=== PATIENT | female | born 1995 | race Caucasian/White ===

== ENCOUNTER 2024-01-19 12:39 | Outpatient (CLI) | payer MEDICAID, SELFPAY | END 2024-01-19 12:40 | disposition home or self-care (01) | LOC: US 12:40 | PROVIDERS: Visit Provider Student in an Organized Health Care Education/Training Program | DX: O99.212 Obesity complicating pregnancy, second trimester (principal); Z3A.19 19 weeks gestation of pregnancy | CPT/HCPCS: 76811 ==

== ENCOUNTER 2024-02-16 09:37 | Outpatient (CLI) | payer MEDICAID, SELFPAY | END 2024-02-16 09:38 | disposition home or self-care (01) | LOC: US 09:38 | PROVIDERS: Visit Provider Obstetrics & Gynecology | DX: O26.892 Other specified pregnancy related conditions, second trimester (principal); Q64.9 Congenital malformation of urinary system, unspecified; Z3A.23 23 weeks gestation of pregnancy | CPT/HCPCS: 76816 ==

== ENCOUNTER 2024-03-11 18:14 | Emergency (ER) | payer MEDICAID, SELFPAY ==
[2024-03-11 18:22] VITALS: BP 122/85; PULSE 119; RESP 18; TEMP 36.4; O2SAT 97; BMI 46.1
--- NOTE | 2024-03-11 18:43 | ED.GENADULT ---
HPI - General Adult General Chief complaint: Nausea/Vomiting Stated complaint: 26 weeks , elevated heartrate, weakness Time Seen by Provider: 03/11/24 18:24 Source: patient Mode of arrival: ambulatory Limitations: no limitations History of Present Illness HPI narrative: 28-year-old female, a 26 weeks gestation presents today with nausea, vomiting, diarrhea and racing heartbeat. Patient states that she began to get sick yesterday and has been vomiting or having diarrhea every hour since. She denies fevers or chills. No blood in her vomit or stool. She feels achy. No headache. No chest pain or abdominal pain. Patient is not short of breath. No vaginal discharge. has been uncomplicated. Baby was kicking as recently as an hour ago. Denies any sick contacts. This afternoon patient noticed that her heart was racing. Related Data Home Medications ?Medication ?Instructions ?Recorded ?Confirmed PNV 153-FA 400 mcg-om3 35 mg-dha tab PO 12/08/23 12/20/23 25 mg-epa 5 mg-fish oil chew tablet ( Gummies) Allergies Allergy/AdvReac Type Severity Reaction Status Date / Time No Known Drug Allergies Allergy Verified 12/20/23 08:42 Review of Systems Status of ROS: Reports: 10 or more systems reviewed and unremarkable except as noted in History and below [facility] Medical History History of vaginal delivery Hx of abnormal cervical Pap smear ?Z87.42 - Personal history of other diseases of the female genital tract (ICD-10) Surgical History History of cholecystectomy ?Z90.49 - Acquired absence of other specified parts of digestive tract (ICD-10) Social History Narrative: Education: Some college? ? Work: current student in college? ? Partner: Efrian? ? Lives with: Inez and 3 other children, age 14, 3 and 14 months.? ? Pets: one cat, she does not change the litter box? ? Abuse: Denies past Safe at home with current partner ? ? ? Special Diet: Denies? ? Ok with a blood transfusion: yes? ? Culture or protestant beliefs: denies? RISK FACTORS? ? Exercise Times/wk: daily walking most of the time, and house chores? ? Depression/Anxiety: denies? ? Previous Treatments NA ? Therapy NA JASWANT: 0 PHQ 9: 0? ? Seat Belt Use: Routinely ? Smoking: Denies past/present? ? Alcohol/day: Denies while ? ?Has 1-2 drinks a week when not Caffeine: rarely when ? ? Drug Use: Denies past/present? What is your current living situation?: I presently have a place to live Problems where you live: no known problems In the past 12 months, utilities in danger of being shut off: no In past 12 months, lack of transportation kept you from medical appts, meetings, work, or getting things needed for daily living: no In the past 12 mos, have been you worried that your food would run out before you had money to buy more?: never true In the past 12 mos, the food you bought just didn't last and you didn't have money to buy more?: never true Smoking Status: Never smoker Do you use any of these nicotine containing products: Vaping Products Second hand tobacco smoke exposure: No How often do you have a drink containing alcohol: never AUDIT-C Alcohol total score: 0 Non-prescribed substance use: denies use How often does anyone, including family, friends and others, physically hurt you: never How often does anyone, including family, friends and others, insult or talk down to you: never How often does anyone, including family, friends and others, threaten you with harm: never How often does anyone, including family, friends and others, scream or curse at you: never service: No Exam Narrative: Exam Narrative: Obese, well-developed patient in no acute distress. Alert and oriented. Answers questions appropriately. Mood and affect are appropriate. Thoughts are goal oriented and rational. No tangential or magical thinking noted. Patient speaks in full sentences without needing to catch her breath. HEENT: Normocephalic atraumatic. Pupils are equally round reactive to light. Extraocular muscles are intact. Conjunctivae are moist without any icterus noted. Moist mucous membranes. Posterior pharynx is normal. Neck is soft without any lymphadenopathy or thyromegaly. No masses are appreciated. Cardiovascular: Tachycardic, regular rhythm. Lungs: Clear to auscultation bilaterally no wheezes rhonchi or rales are appreciated. Patient takes deep breaths without any discomfort. Abdomen: Soft and nontender nondistended with normal bowel sounds. Gravid. Extremities: Bilateral lower extremities are without edema. Skin: Well perfused without any obvious rashes. Const: Vital Signs, click to edit/add: Vital Signs - 24 hr 03/11/24 18:22 Temperature 97.5 F L Pulse Rate [Pulse Oximeter] 119 H Respiratory Rate 18 Blood Pressure [Ri ght Upper Arm] 122/85 Pulse Oximetry 97 Oxygen Delivery Me thod Room Air Course Course ED Course: Bedside Doppler revealed heart tones with a rate of 165. We did go ahead and start an IV, L of normal saline IV Zofran was ordered. EKG, read by me, shows normal sinus rhythm with a pulse of 95. CBC unremarkable. Mild anemia expected at this stage . Electrolytes show mild hyponatremia and mild hypokalemia. UA with 4+ ketones. Triple swab is negative. Vital Signs Vital signs: Initial Vital Signs Temperature 97.5 F L 03/11/24 18:22 Temperature Source Temporal Artery Scan 03/11/24 18:22 Pulse Rate 119 H 03/11/24 18:22 Respiratory Rate 18 03/11/24 18:22 Blood Pressure 122/85 03/11/24 18:22 Blood Pressure Mean 97 03/11/24 18:22 Pulse Oximetry 97 03/11/24 18:22 Oxygen Delivery Method Room Air 03/11/24 18:22 Vital Signs Temperature 97.5 F L 03/11/24 18:22 Pulse Rate 119 H 03/11/24 18:22 Respiratory Rate 18 03/11/24 18:22 Blood Pressure 122/85 03/11/24 18:22 Pulse Oximetry 97 03/11/24 18:22 Oxygen Delivery Method Room Air 03/11/24 18:22 Temperature 97.5 F L 03/11/24 18:22 Pulse Rate 119 H 03/11/24 18:22 Respiratory Rate 18 03/11/24 18:22 Blood Pressure 122/85 03/11/24 18:22 Pulse Oximetry 97 03/11/24 18:22 Oxygen Delivery Method Room Air 03/11/24 18:22 Medications Administered Medications: Discontinued Medications Generic Name Dose Route Start Last Admin Trade Name Freq PRN Reason Stop Dose Admin Sodium Chloride 1,000 mls @ 1,000 mls/hr 03/11/24 18:45 03/11/24 18:55 0.9 % Sodium Chloride 1000 Ml IV 03/11/24 19:44 1,000 mls/hr .Q1H BINU Administration Ondansetron HCl 4 mg 03/11/24 18:36 03/11/24 18:55 Ondansetron 2 Mg/Ml Inj IVP 03/11/24 18:37 4 mg ONCE ONE Administration Medical Decision Making MDM Narrative Medical decision making narrative: 28-year-old female gastroenteritis. Discussed fluid intake, rest. Will send the patient home with some tablets of Zofran to take as needed. If she is feeling better over the next 24 hours she has a follow-up appointment March 22 that she can keep. Otherwise recommend she follow-up this week if she is not feeling that she is improving. Lab Data Lab results reviewed: Yes I reviewed the patient's lab results Labs: Lab Results 03/11/24 03/11/24 03/11/24 Range/Units 18:31 18:51 19:35 WBC 10.05 (4.50-11.00) K/uL RBC 3.90 L (4.00-5.20) m/uL Hgb 11.3 L (12.0-16.0) gm/dL Hct 34.9 (33.0-51.0) % MCV 90 (80-100) fL MCH 29 (26-34) pg MCHC 32 (32-36) gm/dL RDW Coeff of Laquita 15.9 H (11.5-15.5) % Plt Count 208 (140-440) K/uL Neut % (Auto) 92.0 H (42.0-72.0) % Lymph % (Auto) 5.4 L (20-44) % [place] % (Auto) 2.0 (0.0-11.0) % Eos % (Auto) 0.1 (0.0-7.0) % Baso % (Auto) 0.1 (0.0-3.0) % Neut # (Auto) 9.20 H (1.7-7.0) K/uL Lymph # (Auto) 0.50 L (0.90-2.90) K/uL [place] # (Auto) 0.20 (0.00-0.90) K/UL Eos # (Auto) 0.01 (0.00-0.50) K/uL Baso # (Auto) 0.01 (0.00-0.30) K/uL Abs Immat Gran (auto) 0.04 (0.00-0.30) K/uL Imm/Tot Granulo (auto) 0.4 % Sodium 134 L (135-149) mmol/L Potassium 3.3 L (3.6-5.1) mmol/L Chloride 107 (96-114) mmol/L Carbon Dioxide 19 L (20-32) mmol/L Anion Gap 8 (7-15) mEq/L BUN 5 (5-24) mg/dL Creatinine 0.3 L (0.5-1.5) mg/dL Estimated Creat Clear 246.74 Estimated GFR 146 ml/min Glucose 116 H (60-115) mg/dL Calcium 8.4 (8.4-10.6) mg/dL Total Bilirubin 0.7 (0.1-1.5) mg/dL Direct Bilirubin 0.3 (0.0-0.5) mg/dL AST 16 (12-35) U/L ALT 14 (4-35) U/L Alkaline Phosphatase 115 (40-150) U/L Total Protein 7.0 (6.0-8.3) g/dL Albumin 3.4 (3.3-5.0) g/dL Urine Color Yellow (Yellow) Urine Appearance Slightly Cloudy A (Clear) Urine pH 6.5 (5.0-8.5) Ur Specific [place] 1.015 (1.000-1.030) Urine Protein Negative (Negative) Urine Glucose (UA) Negative (Negative) Urine Ketones 4+ A (Negative) Urine Blood Negative (Negative) Urine Nitrite Negative (Negative) Urine Bilirubin Negative (Negative) Urine Urobilinogen 0.2 (0.2-1.0) Ur Leukocyte Esterase Negative (Negative) Urine RBC 0-2 (0-2) Urine WBC 0-2 (0-5) Ur Squamous Epith Cells Moderate A (None-Few) Urine Bacteria Moderate A (None) SARS-CoV-2 (PCR) Negative SARS-CoV-2 (Negative) Influenza Type A (PCR) Negative PCR FLU A (Negative) Influenza Type B (PCR) Negative PCR FLU B (Negative) RSV (PCR) Negative PCR RSV (Negative) Discharge Plan Discharge Clinical Impression: Gastroenteritis Patient Disposition: Home, Self-Care Condition: Stable Additional Instructions: Okay to take Zofran as needed for nausea and vomiting. If you are feeling better you can keep you March 22 appointment. If you are not feeling improved by the end tomorrow, recommend you follow-up with your OBGYN or primary care provider early next week. Your sodium and potassium was slightly low today. If you are not feeling better by the end of tomorrow it would be a good idea to have those rechecked this coming week. Zofran #10 tabs sent to [facility]. Prescriptions: No Action Gummies 400 mcg-35 mg- 25 mg-5 mg tablet,chewable PO Follow Up/Referrals: Provider,Not a Local [Primary Care Provider] - Stand Alone Forms: [employer] Info Instructions
[2024-03-11] MEDS: 0.9 % SODIUM CHLORIDE 1000 ml 1,000 ML IV (18:55)
[2024-03-11] MEDS: ONDANSETRON 2 MG/ML inj 4 MG IVP (18:55)
[2024-03-11 19:09] LABS: Basophils Absolute Auto 0.01 K/uL (0.00-0.30); Basophils Percent Auto 0.1 % (0.0-3.0); Eosinophils Absolute Auto 0.01 K/uL (0.00-0.50); Eosinophils Percent Auto 0.1 % (0.0-7.0); Hematocrit 34.9 % (33.0-51.0); Hemoglobin* 11.3 gm/dL (12.0-16.0); Immature Granulocytes Abs Auto 0.04 K/uL (0.00-0.30); Immature Granulocytes Pct Auto 0.4 %; Lymphocytes Percent Auto 5.4 % (20-44); Mean Corpuscular HGB Conc 32 gm/dL (32-36); Mean Corpuscular Hemoglobin 29 pg (26-34); Mean Corpuscular Volume 90 fL (80-100); Platelet Count* 208 K/uL (140-440); RDW Coefficient of Variation % 15.9 % (11.5-15.5); White Blood Count* 10.05 K/uL (4.50-11.00)
--- NOTE | 2024-03-11 19:18 | PC.NURSE ---
pt in rade
[2024-03-11 19:27] LABS: PCR FLU A Negative PCR FLU A (Negative); PCR FLU B Negative PCR FLU B (Negative); PCR RSV Negative PCR RSV (Negative); SARS PCR* Negative SARS-CoV-2 (Negative)
[2024-03-11 19:33] LABS: Slide Review Reflex No
[2024-03-11 19:39] LABS: Albumin* 3.4 g/dL (3.3-5.0); Chloride* 107 mmol/L (96-114); Potassium* 3.3 mmol/L (3.6-5.1); Sodium* 134 mmol/L (135-149)
[2024-03-11 19:41] LABS: Creatinine* 0.3 mg/dL (0.5-1.5); Est. Creatinine Clearance* 246.74; Estimated Glomerular Filt Rate 146 ml/min
[2024-03-11 19:41] LABS: Appearance Urine Slightly Cloudy (Clear); Bilirubin Urine Negative (Negative); Blood Urine Negative (Negative); Color Urine Yellow (Yellow); Glucose Urine Negative (Negative); Ketones Urine 4+ (Negative); Leukocyte Esterase Urine Negative (Negative); Nitrite Urine Negative (Negative); Protein Urine Negative (Negative); Specific Gravity Urine 1.015 (1.000-1.030); Urobilinogen Urine 0.2 (0.2-1.0); pH Urine 6.5 (5.0-8.5)
[2024-03-11 19:42] LABS: Alanine Aminotransferase* 14 U/L (4-35); Alkaline Phosphatase* 115 U/L (40-150); Anion Gap 8 mEq/L (7-15); Aspartate Amino Transferase* 16 U/L (12-35); Bilirubin Direct* 0.3 mg/dL (0.0-0.5); Bilirubin Total* 0.7 mg/dL (0.1-1.5); Blood Urea Nitrogen* 5 mg/dL (5-24); Carbon Dioxide* 19 mmol/L (20-32); Glucose* 116 mg/dL (60-115)
[2024-03-11 19:43] LABS: Calcium* 8.4 mg/dL (8.4-10.6)
[2024-03-11 19:49] LABS: Bacteria Urine Moderate; RBC Urine 0-2 (0-2); Squamous Epithelial Cell Urine Moderate (None-Few); WBC Urine 0-2 (0-5)
[2024-03-11 20:06] VITALS: BP 126/78; PULSE 114; RESP 20
== END 2024-03-11 20:07 | disposition home or self-care (01) ==
PROVIDERS: Emergency Provider Family Medicine
DX: K52.9 Noninfective gastroenteritis and colitis, unspecified (principal); Z33.1 Pregnant state, incidental
CPT/HCPCS: 36415; 80048; 80076; 81001; 85025; 87086; 87631; 93005; 96374; 99284; J2405; J7030

== ENCOUNTER 2024-03-22 08:03 | Outpatient (CLI) | payer MEDICAID, SELFPAY | END 2024-03-22 08:04 | disposition home or self-care (01) | LOC: US 08:04 | PROVIDERS: Visit Provider Obstetrics & Gynecology | DX: O99.213 Obesity complicating pregnancy, third trimester (principal); E66.01 Morbid (severe) obesity due to excess calories; Z3A.28 28 weeks gestation of pregnancy | CPT/HCPCS: 76816; 86592 ==

== ENCOUNTER 2024-03-24 07:58 | Outpatient (CLI) | payer MEDICAID, SELFPAY | END 2024-03-24 07:59 | disposition home or self-care (01) | LOC: NFLDREF 03-28 11:37 | PROVIDERS: PCP Obstetrics & Gynecology; Visit Provider Obstetrics & Gynecology | DX: O99.810 Abnormal glucose complicating pregnancy (principal) | CPT/HCPCS: 82951; 82952 ==

== ENCOUNTER 2024-04-21 09:03 | Outpatient (CLI) | payer MEDICAID, SELFPAY ==
--- NOTE | 2024-04-21 09:08 | CRLHL7_ITS ---
For Patients: As a result of the Century Cures Act, medical imaging exams and procedure reports are released immediately into your electronic medical record. You may view this report before your referring provider. If you have questions, please contact your health care provider. OB ULTRASOUND FOLLOWUP LIMITED, 04/21/2024 CLINICAL HISTORY: GDMA2 and obesity. TECHNIQUE: Transabdominal OB ultrasound. Real time rodriguez scale imaging of the fetus was performed. COMPARISON: 03/22/2024, 02/16/2024, 01/19/2024. FINDINGS: Gestation: Single. ASHLEY by US: 06/14/2024. GA: 32 weeks 2 days. Cervix: Not visualized. Positioning: Vertex. Amniotic Fluid: 6.0 cm. Placenta: Technique: Transabdominal. Placenta Position: Posterior. Dopplers: Heart Rate: 141 bpm. Biophysical Profile: Total Score: 8 Gross Body Movements: 2 Tone: 2 Respiratory Activity: 2 Amniotic Fluid: 2 Biometry: BPD: 8.1 cm, 32 weeks 4 days. 50.8% HC: 29.7 cm, 32 weeks 6 days. 27.7% AC: 29.9 cm, 33 weeks 6 days. 89.3% FL: 6.0 cm, 31 weeks 2 days. 15.2% EFW: 2087 grams, 4 lb 10 oz. Age by this US: 32 weeks 5 days. ASHLEY by this US: 06/11/2024. Percentile by ASHLEY: 61.5% IMPRESSION: 1. Sonographic gestational age 32 weeks 5 days and sonographic due date 06/11/2024. Good correlation with dates. Normal interval growth. 2. Estimated weight 62nd percentile. Abdominal circumference 89th percentile. 3. Normal biophysical profile score of 8/8. Nino Klein M.D. Diagnostic Radiologist [email or web address] Transcribed: 1:52 pm DW/Dictated by: Nino Klein MD @ 04/21/2024 1:18:00 PM DW/Dictated by: Nino Klein MD @ 04/21/2024 1:18:00 PM (Electronically Signed)
== END 2024-04-21 09:04 | disposition home or self-care (01) ==
LOC: US 09:04
PROVIDERS: Visit Provider Obstetrics & Gynecology
DX: O24.419 Gestational diabetes mellitus in pregnancy, unspecified control (principal); O99.213 Obesity complicating pregnancy, third trimester; Z3A.32 32 weeks gestation of pregnancy
CPT/HCPCS: 76816; 76819

== ENCOUNTER 2024-04-25 14:20 | Outpatient (CLI) | payer MEDICAID, SELFPAY | END 2024-04-25 14:21 | disposition home or self-care (01) | PROVIDERS: Visit Provider Obstetrics & Gynecology | DX: O24.414 Gestational diabetes mellitus in pregnancy, insulin controlled (principal); Z3A.32 32 weeks gestation of pregnancy | CPT/HCPCS: 82565; 82570; 84156; 84450; 84460; 84520 ==

== ENCOUNTER 2024-04-28 09:08 | Outpatient (CLI) | payer MEDICAID, SELFPAY | END 2024-04-28 09:09 | disposition home or self-care (01) | LOC: US 09:08 | PROVIDERS: Visit Provider Obstetrics & Gynecology | DX: O24.419 Gestational diabetes mellitus in pregnancy, unspecified control (principal); O99.210 Obesity complicating pregnancy, unspecified trimester; Z3A.00 Weeks of gestation of pregnancy not specified; E66.01 Morbid (severe) obesity due to excess calories | CPT/HCPCS: 76819 ==

== ENCOUNTER 2024-05-05 09:13 | Outpatient (CLI) | payer MEDICAID, SELFPAY | END 2024-05-05 09:14 | disposition home or self-care (01) | LOC: US 09:14 | PROVIDERS: Visit Provider Obstetrics & Gynecology | DX: O24.419 Gestational diabetes mellitus in pregnancy, unspecified control (principal); O99.210 Obesity complicating pregnancy, unspecified trimester; E66.01 Morbid (severe) obesity due to excess calories | CPT/HCPCS: 76819 ==

== ENCOUNTER 2024-05-10 11:29 | Outpatient (CLI) | payer MEDICAID, SELFPAY | END 2024-05-10 11:30 | disposition home or self-care (01) | LOC: US 11:29 | PROVIDERS: Visit Provider Obstetrics & Gynecology | DX: O99.210 Obesity complicating pregnancy, unspecified trimester (principal); O24.419 Gestational diabetes mellitus in pregnancy, unspecified control | CPT/HCPCS: 76819 ==

== ENCOUNTER 2024-05-10 12:29 | Outpatient (CLI) | payer MEDICAID, SELFPAY ==
[2024-05-10] VITALS (14 sets, daily range): BP systolic 102–125; BP diastolic 56–72; PULSE 82–109; O2SAT 98–100
[2024-05-10 13:03] LABS: Hematocrit 34.4 % (33.0-51.0); Mean Corpuscular HGB Conc 32 gm/dL (32-36); Mean Corpuscular Hemoglobin 30 pg (26-34); Mean Corpuscular Volume 93 fL (80-100); Platelet Count* 183 K/uL (140-440); Red Blood Count 3.71 m/uL (4.00-5.20); White Blood Count* 7.45 K/uL (4.50-11.00)
[2024-05-10 13:08] LABS: Slide Review Reflex No
[2024-05-10 13:18] LABS: Alanine Aminotransferase* 19 U/L (4-35); Aspartate Amino Transferase* 15 U/L (12-35); Blood Urea Nitrogen* 4 mg/dL (5-24); Creatinine* 0.4 mg/dL (0.5-1.5); Estimated Glomerular Filt Rate 136 ml/min
[2024-05-10 14:59] LABS: Total Protein Urine 14 mg/dL
[2024-05-10 15:14] LABS: Creatinine Urine 31.8 mg/dL; Protein Creatinine Ratio Urine 0.44 (0-0.19)
--- NOTE | 2024-05-10 15:15 | PC.OBNST ---
NST Note NST Note Start: 05/10/24 12:35 Freq: ONCE Status: Active Protocol: Document 05/10/24 14:32 ARSEN (Rec: 05/10/24 14:32 ARSEN Desktop) NST Note 4 Para (# of births) 3 EDC 06/14/24 Gestational Age In Weeks & Days 35 Weeks & 0 Days High Risk Factors High Blood Pressure - Gestational,Diabetes - Gestational Insulin Patient Presented with Complaint(s) of Other Other Complaints Elevated BPs Reactive Yes Appropriate for Gestational Age Yes RN Theresa Krueger RN Date 05/10/24 Reactive Yes Appropriate for Gestational Age Yes KAILEY Connell RN Date 05/10/24 OB NST charge Yes Complete NST Note via Write Note Yes The provider's electronic signature indicates the NST is reactive/appropriate for gestational age. *Note to provider: If an addendum is required, open the patient's chart and click on the note under the Nurse/Allied Health tab.
[2024-05-11 12:21] LABS: Strep B DNA Probe Negative (Negative)
[2024-05-11 14:07] LABS: Strep B Susceptibility Needed? No
== END 2024-05-10 14:30 | disposition home or self-care (01) ==
LOC: OB OUT 12:30 → OB 12:31
PROVIDERS: Visit Provider Obstetrics & Gynecology
DX: O24.419 Gestational diabetes mellitus in pregnancy, unspecified control (principal); Z3A.35 35 weeks gestation of pregnancy
CPT/HCPCS: 36415; 59025; 82565; 82570; 84156; 84450; 84460; 84520; 85027; 87081; 87653; G0463

== ENCOUNTER 2024-05-15 09:16 | Outpatient (CLI) | payer MEDICAID, SELFPAY | END 2024-05-15 09:17 | disposition home or self-care (01) | LOC: NFLDREF 05-16 01:00 | PROVIDERS: Visit Provider Obstetrics & Gynecology | DX: Z34.83 Encounter for supervision of other normal pregnancy, third trimester (principal) | CPT/HCPCS: 82565; 84450; 84460 ==

== ENCOUNTER 2024-05-19 09:12 | Outpatient (CLI) | payer MEDICAID, SELFPAY | END 2024-05-19 09:13 | disposition home or self-care (01) | LOC: US 09:12 | PROVIDERS: Visit Provider Obstetrics & Gynecology | DX: O99.213 Obesity complicating pregnancy, third trimester (principal); E66.01 Morbid (severe) obesity due to excess calories; Z3A.36 36 weeks gestation of pregnancy | CPT/HCPCS: 76816; 76819 ==

== ENCOUNTER 2024-05-22 09:16 | Outpatient (CLI) | payer MEDICAID, SELFPAY | END 2024-05-22 09:17 | disposition home or self-care (01) | LOC: NFLDREF 05-23 15:22 | PROVIDERS: Visit Provider Obstetrics & Gynecology | DX: O14.93 Unspecified pre-eclampsia, third trimester (principal); Z3A.36 36 weeks gestation of pregnancy | CPT/HCPCS: 82565; 82570; 84156; 84450; 84460; 84520 ==

== ENCOUNTER 2024-05-23 18:08 | Inpatient (IN) | payer MEDICAID, SELFPAY ==
[2024-05-23 18:21] VITALS: PULSE 112; O2SAT 97
[2024-05-23 18:23] VITALS: BMI 47.5
[2024-05-23 18:35] VITALS: BP 147/81; PULSE 89
--- NOTE | 2024-05-23 18:38 | W.PM.LDBA ---
Subjective History of Present Illness Date Seen: 05/23/24 Narrative: Patient is being admitted to Labor and Delivery for induction of labor. She is a 28 year old at 36 weeks, 6 days gestation. Her full history and physical was dictated by Dr. Cline on 05/19/24. Please see this for details. Specific Issues/Plans [id number]: Kaden? Transfer at 13.0 weeks' gestation from [facility]? H&P:?Dr Cline at 05/19/24 # preE without severe features diagnosed on 05/10 HELLP labs normal on 05/10 Twice weekly testing ongoing IOL for 37 weeks # BMI 45.5 prepregnancy? Hgb A1C 5.4 with NOB referral to nutrition-sent consult anesthesia- referral sent referral OB consult-completed Level II with MFM: See below Growth US at 34 weeks and start weekly testing at this time-scheduling form completed and scanned in patients chart #GDMA2- 04/05/24 Elevated 1hrGTT:165, 3hrGTT:3/4 elevated-GDM Punch Hand:03/27/24 04/05/24 FU: All FBS elevated, recommend to start insulin NPH 15U at HS > Increased to 17 units q.h.s. on 05/05/2024 > 19u QHS on 05/10/25 Growth US every 4 weeks, twice weekly testing # left kidney renal pelvis dilation -FU US w MFM NF-scheduled for 28 weeks -FU US at 28 weeks-Resolved #Anemia at 28 weeks -Oral iron ordered -FU: 10.9 labs 11/04/23:?? OB Labs: ? Blood type: A+, antibody screen negative. ? Hgb: 11.9 ? Hgb A1C: 5.4 Platelets: 227 ? Rubella: Immune ? Varicella: Immune RPR: non-reactive ? HBsAg: non-reactive ? Hep C: negative HIV: negative ? UC: negative GC/Chlamydia: negative/negative ? Pap (03/17/22): negative ? Genetic screening: declines ? IMAGING: ? 1st trimester: Single live intrauterine at 8.1 weeks with ASHLEY 06/14/24. Level 2:Normal anatomy, except...repeat assessment of suboptimally visualized anatomy in 4 weeks with MFM at NF.if UTD is persistent at follow up scan, recommend repeat assessment with MFM at NF at 32 weeks to determine if referral to pediatric urology is warranted. growth assessment at 28 and 34 weeks with radiology at . weekly testing starting at 34 weeks with radiology at Level 2 FU 02/16/24: Lewis intrauterine at 23w 0d gestational age. None of the anomalies commonly detected by ultrasound were evident in the detailed anatomic survey described above.Growth parameters and estimated weight were consistent with appropriate for gestational age pattern of growth.The amniotic fluid volume appeared normal. Recommendation: We reviewed that the anatomy that was suboptimally seen at the prior US appeared within normal limits today. The left renal pelvis measure at the upper limit of normal at 3.9 mm. Given this, revision to recommended follow up US is: - Repeat assessment of growth and anatomy at 28 weeks with [facility] to re-evaluate anatomy, given left renal pelvis just below the threshold for urinary tract dilation - Repeat assessment of growth and anatomy at 34 weeks with [facility] - Weekly BPP at 34 weeks with [facility] Most recent ultrasound from 05/19/2024: Cephalic, SDP 5.6 cm, EFW 65%, AC 91%, all other growth parameters within normal ranges. Vaccinations:?? COVID: 12/08/23? Flu: 12/08/23? Tdap: 04/05/2024? RSV: 04/21/24 Hgb: 10.9 05/05/24 GBS negative 32 week mental health: 04/21/24 Last pap:? 03/17/22 NILM, neg HPV? ? OB - Problem Based A/P Additional Plan (1) GDM, class A2: Status: Acute (2) Preeclampsia: Status: Acute (3) : Status: Acute Plan Using aseptic technique, Cook catheter placed through endocervix into lower uterine segment. Both the balloons were inflated to 60 cc. Patient tolerated procedure well. With respect to preeclampsia: To obtain HELLP labs now. Will monitor BPs closely during labor and . Currently only mildly elevated. With respect to GDM A2: She usually takes 19 units of NPH at at bedtime. Tonight, she will take 9 units. Tomorrow, we will continue with q.i.d. blood sugar checks until active labor (fasting and 2 hour postprandial). She is GBS negative. Delivery/Labor/Induction Plan Induction method: Intracervical balloon catheter OB Exam Physical Exam Vital signs: Pulse BP Pulse Ox 89 147/81 H 97 05/23/24 18:35 05/23/24 18:35 05/23/24 18:21 Narrative: Physical exam: General: No acute distress Psych: Alert and oriented x3, full affect HEENT: Normocephalic, atraumatic Heart: Regular rate and rhythm, no murmur rub or gallop Lungs: Clear to auscultation bilaterally Abdomen: Soft, nontender, gravid, cephalic lie Lower extremities: trace bilateral edema, no erythema Pelvic exam: 1 / long / high / midposition / firm tracing: Baseline 140, accelerations present, no decelerations, moderate variability. No regular contractions
[2024-05-23 19:07] VITALS: BP 142/68; PULSE 93
[2024-05-23 19:58] LABS: Basophils Absolute Auto 0.01 K/uL (0.00-0.30); Basophils Percent Auto 0.1 % (0.0-3.0); Eosinophils Absolute Auto 0.07 K/uL (0.00-0.50); Eosinophils Percent Auto 0.8 % (0.0-7.0); Hematocrit 33.9 % (33.0-51.0); Immature Granulocytes Abs Auto 0.03 K/uL (0.00-0.30); Immature Granulocytes Pct Auto 0.3 %; Lymphocytes Percent Auto 18.2 % (20-44); Mean Corpuscular HGB Conc 32 gm/dL (32-36); Mean Corpuscular Hemoglobin 30 pg (26-34); Mean Corpuscular Volume 92 fL (80-100); Monocytes Percent Auto 4.8 % (0.0-11.0); Neutrophils Percent Auto 75.8 % (42.0-72.0); Platelet Count* 188 K/uL (140-440); RDW Coefficient of Variation % 15.7 % (11.5-15.5); Red Blood Count 3.68 m/uL (4.00-5.20); White Blood Count* 9.05 K/uL (4.50-11.00)
[2024-05-23 20:10] LABS: Slide Review Reflex No
[2024-05-23 20:19] LABS: Alanine Aminotransferase* 17 U/L (4-35); Aspartate Amino Transferase* 18 U/L (12-35); Blood Urea Nitrogen* 4 mg/dL (5-24); Creatinine* 0.4 mg/dL (0.5-1.5); Est. Creatinine Clearance* 185.05; Estimated Glomerular Filt Rate 136 ml/min
[2024-05-23 21:24] VITALS: BP 134/79; PULSE 96; RESP 17; TEMP 36.3
[2024-05-23] MEDS: MORPHINE 10 MG/ML inj IM (21:25)
[2024-05-23] MEDS: hydrOXYzine pamoate 25 MG CAPSULE 100 MG PO (21:25)
[2024-05-23] MEDS: LACTATED RINGERS 1000 ML 1,000 ML 125 ML IV (21:45)
[2024-05-23] MEDS: INSULIN GLARGINE,HUM.REC.ANLOG 100 UNIT/ML INSULN.PEN 9 UNIT SUBCUT (21:51)
[2024-05-24] VITALS (47 sets, daily range): BP systolic 101–142; BP diastolic 54–111; PULSE 77–114; RESP 17; TEMP 36.7–37.1; O2SAT 91–99
[2024-05-24] MEDS: OXYTOCIN 30 unit/500 ML in NS 30 UNIT/500 ML BAG IVPB (00:45)
[2024-05-24 01:29] LABS: Total Protein Urine 13 mg/dL
[2024-05-24 01:30] LABS: Creatinine Urine 72.8 mg/dL; Protein Creatinine Ratio Urine 0.18 (0-0.19)
[2024-05-24] MEDS: LACTATED RINGERS 1000 ML 1,000 ML 125 ML IV (05:40)
[2024-05-24] MEDS: ACETAMINOPHEN 500 MG TABLET 1000 MG PO ×2 (07:58→21:15)
--- NOTE | 2024-05-24 10:00 | PM.OBPNL ---
Subjective Date Seen: 05/24/24 Narrative: Okay Objective Vital Signs: Last Vital Signs Temp 98.7 F 05/24/24 07:54 Pulse 87 05/24/24 09:49 Resp 17 05/23/24 21:24 BP 124/69 05/24/24 09:49 Pulse Ox 97 05/23/24 18:21 Pelvic Exam Dilation (cm): 5 Effacement (%): 80 Station: -2 Contractions Monitor mode: External Contraction pattern: Regular Contraction intensity: Moderate Pitocin Rate (mU/min): 15 Assessment Assessment: induction ongoing Station: -2 Amniotic Membrane Status: AROM Status: Category l Heart Rate Baseline: 150 Retirement Variability: Moderate (6-25) Monitor Accelerations: Present Monitor Decelerations: None Plan Plan: 1. IOL ongoing, AROM and clear fluid. Patient tolerated procedure well. NST category 1. Patient plans to get epidural soon. 2. GBS negative. 3. 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 Will continue close monitoring. 4. GDMA2: Lantus 8 units given last night. FBS today 95. Will continue to monitor as per protocol and cover if needed with SubQ short acting insulin.
[2024-05-24] MEDS: LACTATED RINGERS 1000 ML 1,000 ML 1109 ML IV (11:32)
[2024-05-24] MEDS: LIDOCAINE 2% (PF) 5 ML VIAL EPIDURAL (12:01)
[2024-05-24] MEDS: ROPIVACAINE 0.2% 100 ml 100 ML 12 MG EPIDURAL (12:01)
--- NOTE | 2024-05-24 12:10 | PM.ANBPRC ---
[facility] Medical History History of vaginal delivery Hx of abnormal cervical Pap smear ?Z87.42 - Personal history of other diseases of the female genital tract (ICD-10) Surgical History History of cholecystectomy ?Z90.49 - Acquired absence of other specified parts of digestive tract (ICD-10) Social History Narrative: Education: Some college? ? Work: current student in college? ? Partner: Inez? ? Lives with: Inez and 3 other children, age 14, 3 and 14 months.? ? Pets: one cat, she does not change the litter box? ? Abuse: Denies past Safe at home with current partner ? ? ? Special Diet: Denies? ? Ok with a blood transfusion: yes? ? Culture or synagogue beliefs: denies? RISK FACTORS? ? Exercise Times/wk: daily walking most of the time, and house chores? ? Depression/Anxiety: denies? ? Previous Treatments NA ? Therapy NA JASWANT: 0 PHQ 9: 0? ? Seat Belt Use: Routinely ? Smoking: Denies past/present? ? Alcohol/day: Denies while ? ?Has 1-2 drinks a week when not Caffeine: rarely when ? ? Drug Use: Denies past/present? What is your current living situation?: I presently have a place to live Problems where you live: no known problems In the past 12 months, utilities in danger of being shut off: no In past 12 months, lack of transportation kept you from medical appts, meetings, work, or getting things needed for daily living: no In the past 12 mos, have been you worried that your food would run out before you had money to buy more?: never true In the past 12 mos, the food you bought just didn't last and you didn't have money to buy more?: never true Smoking Status: Never smoker Do you use any of these nicotine containing products: Vaping Products Second hand tobacco smoke exposure: No How often do you have a drink containing alcohol: never AUDIT-C Alcohol total score: 0 Non-prescribed substance use: denies use How often does anyone, including family, friends and others, physically hurt you: never How often does anyone, including family, friends and others, insult or talk down to you: never How often does anyone, including family, friends and others, threaten you with harm: never How often does anyone, including family, friends and others, scream or curse at you: never service: No Meds Home Medications and Allergies Home Medications ?Medication ?Instructions ?Recorded ?Confirmed ?Type PNV 153-FA 400 mcg-om3 35 mg-dha tab PO 12/08/23 05/22/24 History 25 mg-epa 5 mg-fish oil chew tablet ( Gummies) ascorbic acid (vitamin C) 1,000 mg 1 g PO QDAY 04/05/24 05/23/24 History capsule aspirin 81 mg chewable tablet 81 mg PO QDAY 05/10/24 05/23/24 History Allergies Allergy/AdvReac Type Severity Reaction Status Date / Time No Known Drug Allergies Allergy Verified 05/23/24 18:39 Results Labs Labs: Laboratory Results - last 24 hr 05/23/24 05/23/24 19:52 20:30 WBC 9.05 RBC 3.68 L Hgb 11.0 L Hct 33.9 MCV 92 MCH 30 MCHC 32 RDW Coeff of Laquita 15.7 H Plt Count 188 Neut % (Auto) 75.8 H Lymph % (Auto) 18.2 L [place] % (Auto) 4.8 Eos % (Auto) 0.8 Baso % (Auto) 0.1 Neut # (Auto) 6.90 Lymph # (Auto) 1.60 [place] # (Auto) 0.40 Eos # (Auto) 0.07 Baso # (Auto) 0.01 Abs Immat Gran (auto) 0.03 Imm/Tot Granulo (auto) 0.3 BUN 4 L Creatinine 0.4 L Estimated Creat Clear 185.05 Estimated GFR 136 AST 18 ALT 17 Urine Creatinine 72.8 Protein/Creatinin Ratio 0.18 Urine Total Protein 13 Blood Type A Positive Antibody Screen NEGATIVE Vital Signs Vital Signs: Last Vital Signs Temp 98.4 F 05/24/24 10:48 Pulse 103 H 05/24/24 12:09 Resp 17 05/23/24 21:24 BP 120/59 L 05/24/24 12:09 Pulse Ox 98 05/24/24 11:58 Weight: 129.274 kg Height: 165.1 cm Anesthesia Procedures Epidural Insertion Patient Location: OB Start Time: 11:45 Stop Time: 12:15 Start Date: 05/24/24 Stop Date: 05/24/24 Reason for Block: primary anesthetic Patient Position: sitting Performed By: Murphy Galan Preanesthetic Checklist: IV checked, risks and benefits discussed, surgical consent, monitors and equipment checked, pre-op evaluation, timeout performed and anesthesia consent Prep: chlorhexidine gluconate Monitoring: blood pressure monitoring, monitoring manager, continuous pulse oximetry and heart rate Approach: midline Vertebral Space: lumbar (1-5) Needle Type: Tuohy needle Injection Technique: continuous catheter (catheter) Needle gauge: 17 Needle Length (cm): 10 cm Needle Insertion Depth (cm): 9 Catheter Gauge: 19 Catheter Type: multi-orifice Catheter at skin depth (cm): 15 Test Dose Result: negative and lidocaine 1.5% with epinephrine 1 to 200,000
--- NOTE | 2024-05-24 14:53 | W.PM.OBVAGDE ---
OB Procedure Vag Delivery Mother Details Mother Details: The patient is a 28 year-old, 4, Para 3, admitted on 05/23/24 at 36 6/7 Days gestation for IOL due to CHTN with superimposed preeclampsia w/o severe features, GDMA2. IOL started with mechanical dilation and IV Oxytocin, progressed normally and AROM completed this morning after which patient progressed to complete dilation. Vital signs remained stable, as well as FBS levels. : 4 Para: 4 Weeks Gestation: 37 Admission Date: 05/23/24 Additional Details Amniotic Membrane Status: AROM Amniotic Membrane Rupture Date: 05/24/24 Amniotic Membrane Rupture Time: 09:26 Amniotic Membrane Fluid Description: Clear Analgesia/Anesthesia Type: Epidural Waterbirth: No Pitcoin: Yes Intrapartal Events: Labor Induction Induction Method: Intracervical balloon catheter, per pitocin protocol and AROM Labor Onset: 11:40 Complete: 14:17 Pushin:15 Heart: heart tones during second stage were category 2. Deep variable with contractions, moderate variability and accelerations in between contractions. Delivery Details Delivery Date: 05/24/24 Delivery Time: 14:31 Route of delivery: Gender: Female Viability: Alive; Heart Rate Present Position at Delivery: OA Delivery Details: Delivered via spontaneous vaginal delivery. Infant was placed on maternal abdomen.? Cord was clamped and cut after a 30-60 second delay. Nose and mouth were bulb suctioned.? weight pending. 1 Minute Interval Total Score: 7 5 Minute Interval Total Score: 8 Additional Details Shoulder Dystocia: No Placenta Delivery Time: 14:35 Placental Delivery Description: Spontaneous Delivery repair: Vicryl Procedure Done: Global Blood Loss: 150 Laceration: Perineal - 1st Degree Episiotomy Description: None Blood Loss Measurement Type: QBL Bakri Used: No Sponge/Need Count Correct: Yes Cord Vessel Description: 3 Vessels, Nuchal Cord and Reduced Event Summary Status: Mother and infant were stable after delivery. Disposition: floor
[2024-05-25 04:05] VITALS: BP 125/85; RESP 17; O2SAT 75
[2024-05-25] MEDS: IBUPROFEN 600 MG TABLET PO ×2 (04:08→20:09)
[2024-05-25 06:53] LABS: Hemoglobin* 9.8 gm/dL (12.0-16.0)
--- NOTE | 2024-05-25 08:22 | PM.OBDSVD1 ---
DS: Providers Provider Date Seen: 05/25/24 Date of admission: 05/23/24 18:08 Primary care physician: Not a Local Provider Admitting Clinician: Cat Beasley MD Attending Physician on discharge: Cat Beasley MD Date of Discharge: 05/25/24 DS: Diagnosis Discharge Diagnosis (1) care following vaginal delivery: Status: Acute (2) Lactating mother: Status: Acute (3) GDM, class A2: Status: Acute (4) Preeclampsia: Status: Acute (5) anemia: Status: Acute (6) Obesity, morbid, BMI 40.0-49.9: Status: Acute Exam Narrative: Exam Narrative: GENERAL APPEARANCE:? normal affect, alert, no distress? MOOD:? appropriate? CHEST:? clear to auscultation and percussion? HEART:? regular rate and rhythm? ABDOMEN:? soft, non-tender the uterine fundus is U/1 and is appropriate for the stage of recovery.? PERINEUM:? mild edema of the perineum, there is a 1st degree laceration that is healing well.? EXTREMITIES:? normal and no edema? Const: Vital Signs, click to edit/add: Vital Signs - 24 hr 05/24/24 08:48 05/24/24 09:49 05/24/24 10:48 Temperature Pulse Rate 99 87 84 Respiratory Rate Blood Pressure 119/58 L 124/69 138/71 Blood Pressure [Le ft Arm] Pulse Oximetry Oxygen Delivery Me thod 05/24/24 10:48 05/24/24 11:42 05/24/24 11:43 Temperature 98.4 F Pulse Rate 100 Respiratory Rate Blood Pressure 139/111 H Blood Pressure [Le ft Arm] Pulse Oximetry 99 Oxygen Delivery Me thod 05/24/24 11:48 05/24/24 11:50 05/24/24 11:53 Temperature Pulse Rate 92 Respiratory Rate Blood Pressure 137/94 H Blood Pressure [Le ft Arm] Pulse Oximetry 98 99 Oxygen Delivery Me thod 05/24/24 11:55 05/24/24 11:58 05/24/24 12:00 Temperature 98.1 F Pulse Rate 90 96 Respiratory Rate Blood Pressure 136/70 137/68 Blood Pressure [Le ft Arm] Pulse Oximetry 98 Oxygen Delivery Me thod 05/24/24 12:06 05/24/24 12:09 05/24/24 12:11 Temperature Pulse Rate 97 103 H 93 Respiratory Rate Blood Pressure 125/58 L 120/59 L 110/55 L Blood Pressure [Le ft Arm] Pulse Oximetry Oxygen Delivery Me thod 05/24/24 12:26 05/24/24 12:43 05/24/24 12:57 Temperature Pulse Rate 90 80 87 Respiratory Rate Blood Pressure 116/55 L 118/55 L 126/72 Blood Pressure [Le ft Arm] Pulse Oximetry Oxygen Delivery Me thod 05/24/24 12:59 05/24/24 13:12 05/24/24 13:27 Temperature 98.4 F Pulse Rate 92 89 Respiratory Rate Blood Pressure 129/64 126/59 L Blood Pressure [Le ft Arm] Pulse Oximetry Oxygen Delivery Me thod 05/24/24 13:42 05/24/24 13:59 05/24/24 14:09 Temperature 98.2 F Pulse Rate 94 100 Respiratory Rate Blood Pressure 139/64 101/59 L Blood Pressure [Le ft Arm] Pulse Oximetry Oxygen Delivery Me thod 05/24/24 14:42 05/24/24 14:56 05/24/24 15:00 Temperature 98.2 F Pulse Rate 108 H 93 Respiratory Rate 17 Blood Pressure 118/58 L 113/57 L Blood Pressure [Le ft Arm] Pulse Oximetry 98 Oxygen Delivery Me thod 05/24/24 15:11 05/24/24 15:15 05/24/24 15:26 Temperature 98.2 F Pulse Rate 92 105 H Respiratory Rate 17 Blood Pressure 112/61 110/54 L Blood Pressure [Le ft Arm] Pulse Oximetry 98 Oxygen Delivery Me thod 05/24/24 15:29 05/24/24 15:42 05/24/24 15:56 Temperature 98.2 F Pulse Rate 95 99 Respiratory Rate 17 Blood Pressure 137/76 138/72 Blood Pressure [Le ft Arm] Pulse Oximetry 98 Oxygen Delivery Me thod 05/24/24 16:11 05/24/24 16:26 05/24/24 16:33 Temperature 98.2 F Pulse Rate 114 H 108 H Respiratory Rate 17 Blood Pressure 137/63 131/62 Blood Pressure [Le ft Arm] Pulse Oximetry 98 Oxygen Delivery Me thod 05/24/24 16:40 05/24/24 16:40 05/24/24 21:08 Temperature Pulse Rate 109 H Respiratory Rate 17 Blood Pressure 130/60 Blood Pressure [Le ft Arm] 142/85 H Pulse Oximetry 91 Oxygen Delivery Me thod Room Air 05/24/24 21:38 05/24/24 23:36 05/25/24 04:05 Temperature Pulse Rate Respiratory Rate 17 17 Blood Pressure Blood Pressure [Le ft Arm] 114/76 127/88 125/85 Pulse Oximetry 95 75 L Oxygen Delivery Me thod Room Air Room Air Documenting provider has reviewed patient's vital signs: yes OB - DS: Summary Hospital Course Hospital Course: The patient is a 28 year old G 4 P 4 at 37.1 weeks gestation that was admitted to the Center on 05/23/24 for IOL for preeclampsia without sever features and GDMA2. She had an uncomplicated vaginal delivery. She delivered a viable female infant. She is breast feeding. the patient has done well. Her pain is well controlled with current medications.? She has no new complaints.? Urinary output is adequate and she is voiding without difficulty.? Has a good appetite, is tolerating a general diet, is passing flatus, and has not had a bowel movement.? Has scant amount of rubra lochia.? She is ambulating well. She will start taking iron supplement every other day. Blood pressures have been stable since delivery. anemia was on iron,bp stable dc today Peripartum Data Infant delivery method: Vaginal Laceration description: Perineal - 1st Degree Episiotomy description: None complications: none Gender: Female Discharge Plan: Home Status at Discharge Functional status at discharge: independent ambulation Overall status at discharge: patient is progressing back to baseline Time Spent with Patient Time attestation: Total time spent providing and/or coordinating discharge services: Discharge Plan Discharge Disposition: Home, Self-Care Date of Admission: 05/23/24 18:08 Attending Provider on Discharge: Melissa Noble Primary Care Provider: Provider,Not a Local Condition: Stable Anticipated Discharge Date/Time: 05/25/24 17:00 Discharge Medications: New docusate sodium 100 mg Capsule 100 mg PO DAILY Qty: 90 0RF Rx Instructions: Take 1-2 tablets daily as needed for constipation. ferrous sulfate 325 mg (65 mg iron) Tablet 325 mg PO Q OTHER DAY Qty: 60 0RF ibuprofen 600 mg Tablet 600 mg PO Q6H PRNQty: 60 0RF Continued Gummies 400 mcg-35 mg- 25 mg-5 mg tablet,chewable 1 tab PO DAILY ascorbic acid (vitamin C) 1,000 mg capsule 1 g PO QDAY Discontinued aspirin 81 mg tablet,chewable 81 mg PO QDAY ferrous sulfate 325 mg (65 mg iron) tablet,delayed release (DR/EC) 325 mg PO Q OTHER DAY Qty: 30 0RF (DME) blood-glucose meter [Blood Glucose Monitoring] Kit See Rx Instructions .Route Qty: 1 0RF Rx Instructions: As directed to test blood glucose 4 times daily (DME) lancets [Accu-Chek Softclix Lancets] Misc See Rx Instructions .Route Qty: 100 2RF Rx Instructions: As directed to test blood glucose four times daily (DME) Blood Glucose Test Strip See Rx Instructions .Route Qty: 100 2RF Rx Instructions: As directed to test blood glucose values four times daily Humulin N NPH U-100 Insulin 100 unit/mL suspension 15 unit subcut .hs Qty: 30 2RF Rx Instructions: 15 units at bedtime (DME) insulin syringe-needle U-100 [Sure Comfort Insulin Syringe] 1 mL 30 gauge x 5/16 syringe See Rx Instructions .ROUTE .MEDSUPPLY Qty: 100 3RF Rx Instructions: As directed Discharge Orders: Discharge Order (Routine); Ordered 05/25/24 Ordered By: Melissa Noble Patient Education: OB Vaginal/Breast Feeding Additional Instructions: Discharge instructions were reviewed with the patient including signs and symptoms of infection and home going medications.? Lifting Restrictions: 20 pounds for 6? weeks? ?? Do not drive while taking narcotic pain meds.? Off Work or School for 6 weeks.? ?? Symptoms to report to doctor:? -Bleeding that saturates more than one pad per hour? -Passing clots larger than the size of a golf ball? -Pain not relieved by prescribed medication? -Fever above 100.4 degrees Fahrenheit? -A foul vaginal odor? -Difficulty in emotions, mood and functions? -Thoughts of hurting yourself and/or ? -Painful, reddened area in your breast? -Any drainage, redness or tenderness in your IV/epidural site? -Severe headache that doesn't improve after taking medications? -Changes in vision, including temporary loss of vision, blurred vision, and/or light sensitivity? -Upper abdominal pain (usually under ribs on the right side)? -Decrease in urination or painful, frequent urinating? -Chest pain? -Shortness of breath? -Tenderness or pain with redness and/swelling in the calf(s) of your leg? ?? Follow Up in clinic in 2 and 6 weeks.? ?? consultation services are available to all mothers and babies for the first year after delivery.? To make an appointment, please call [phone].? Activity Level: Activity as Tolerated Discharge Diet: Regular Follow Up Appointments: [facility] [Provider Group] Provider,Not a Local [Primary Care Provider] - Forms: My[facility] Info Instructions
[2024-05-25 08:56] VITALS: BP 112/77; PULSE 95; RESP 16; TEMP 37; O2SAT 97
[2024-05-25] MEDS: DOCUSATE SODIUM 100 MG CAPSULE PO (09:00)
--- NOTE | 2024-05-25 09:08 | PM.ANPOST ---
Post Anesthesia Note Post Anesthesia Note Patient seen: Inpatient Respiratory Status: adequate Cardiovascular Status: adequate Mental Status: baseline Pain: adequate Temp: baseline Anesthetic awareness: N/A Complications: none Follow care: none
[2024-05-25 12:45] VITALS: BP 109/71; PULSE 95; RESP 18; TEMP 36.9; O2SAT 97
[2024-05-25] MEDS: ACETAMINOPHEN 500 MG TABLET 1000 MG PO ×2 (15:10→20:59)
[2024-05-25 18:09] LABS: Rapid Plasma Reagin (RPR) Non Reactive (Non Reactive)
[2024-05-25 20:11] VITALS: BP 125/82; PULSE 91; RESP 18; TEMP 36.9; O2SAT 96
[2024-05-26 04:08] VITALS: BP 108/72; PULSE 88; RESP 18; TEMP 36.5; O2SAT 96
[2024-05-26] MEDS: IBUPROFEN 600 MG TABLET PO (04:09)
[2024-05-26 08:13] VITALS: BP 125/84; PULSE 95; RESP 17; TEMP 36.6; O2SAT 96
--- NOTE | 2024-05-26 08:18 | P.DS_ITS ---
Documented by User: Anastacia Pisano 05/26/24 08:34 DS: Providers Provider Time Seen by Provider: 08:18 Date Seen: 05/26/24 Date of admission: 05/23/24 18:08 Primary care physician: Not a Local Provider Admitting Clinician: Cat Beasley MD Attending Physician on discharge: Gricelda Llanos CNM Date of Discharge: 05/26/24 DS: Diagnosis Discharge Diagnosis (1) anemia: Status: Acute (2) Lactating mother: Status: Acute (3) care following vaginal delivery: Status: Acute (4) Preeclampsia: Status: Acute (5) GDM, class A2: Status: Acute Exam Narrative: Exam Narrative: GENERAL APPEARANCE:? normal affect, alert, no distress MOOD:? appropriate CHEST:? clear to auscultation HEART:? regular rate and rhythm ABDOMEN:? soft, non-tender the uterine fundus is at Umbilicus, Midline and is appropriate for the stage of recovery. PERINEUM:? Deferred EXTREMITIES:? normal and no edema Laceration: Exam deferred Const: Vital Signs, click to edit/add: Vital Signs - 24 hr 05/25/24 08:56 05/25/24 12:45 05/25/24 20:11 Temperature 98.6 F 98.5 F 98.5 F Pulse Rate [Pulse Oximeter] 95 95 91 Respiratory Rate 16 18 18 Blood Pressure [Le ft Arm] 112/77 109/71 125/82 Pulse Oximetry 97 97 96 Oxygen Delivery Me thod Room Air Room Air Room Air 05/26/24 04:08 Temperature 97.7 F Pulse Rate [Pulse Oximeter] 88 Respiratory Rate 18 Blood Pressure [Le ft Arm] 108/72 Pulse Oximetry 96 Oxygen Delivery Me thod Room Air Documenting provider has reviewed patient's vital signs: yes OB - DS: Summary Hospital Course Hospital Course: The patient is a 28 year old G 4 P 4 at 37w 0d weeks gestation that was admitted to the Center on 05/23/24 for for IOL due to CHTN with superimposed preeclampsia w/o severe features, GDMA2. She had an uncomplicated vaginal delivery. She delivered a viable female . The patient feels well.? The pain is well controlled with current medications.? the patient has done well.? Blood pressure and other vitals have been stable.? She has remained afebrile. She has no new complaints.? She is voiding without difficulty.? She is passing gas and has had a bowel movement.She is pumping with bottle feeding. She is ambulating and denies any dizziness.? the patient has done well. Has small amount of rubra lochia.2 hour GTT results []. Peripartum Data delivery method: Vaginal Laceration description: Perineal - 1st Degree complications: none Gender: Female Infant Discharge Plan: Home Status at Discharge Functional status at discharge: independent ambulation Overall status at discharge: patient is progressing back to baseline Time Spent with Patient Time attestation: Total time spent providing and/or coordinating discharge services: Discharge Plan Discharge Disposition: Home, Self-Care Date of Admission: 05/23/24 18:08 Attending Provider on Discharge: Gricelda Llanos Primary Care Provider: Provider,Not a Local Condition: Stable Anticipated Discharge Date/Time: 05/26/24 12:00 Discharge Medications: New docusate sodium 100 mg Capsule 100 mg PO DAILY Qty: 90 0RF Rx Instructions: Take 1-2 tablets daily as needed for constipation. ferrous sulfate 325 mg (65 mg iron) Tablet 325 mg PO Q OTHER DAY Qty: 60 0RF ibuprofen 600 mg Tablet 600 mg PO Q6H PRNQty: 60 0RF Continued Gummies 400 mcg-35 mg- 25 mg-5 mg tablet,chewable 1 tab PO DAILY ascorbic acid (vitamin C) 1,000 mg capsule 1 g PO QDAY Discontinued aspirin 81 mg tablet,chewable 81 mg PO QDAY ferrous sulfate 325 mg (65 mg iron) tablet,delayed release (DR/EC) 325 mg PO Q OTHER DAY Qty: 30 0RF (DME) blood-glucose meter [Blood Glucose Monitoring] Kit See Rx Instructions .Route Qty: 1 0RF Rx Instructions: As directed to test blood glucose 4 times daily (DME) lancets [Accu-Chek Softclix Lancets] Misc See Rx Instructions .Route Qty: 100 2RF Rx Instructions: As directed to test blood glucose four times daily (DME) Blood Glucose Test Strip See Rx Instructions .Route Qty: 100 2RF Rx Instructions: As directed to test blood glucose values four times daily Humulin N NPH U-100 Insulin 100 unit/mL suspension 15 unit subcut .hs Qty: 30 2RF Rx Instructions: 15 units at bedtime (DME) insulin syringe-needle U-100 [Sure Comfort Insulin Syringe] 1 mL 30 gauge x 5/16 syringe See Rx Instructions .ROUTE .MEDSUPPLY Qty: 100 3RF Rx Instructions: As directed Discharge Orders: Discharge Order (Routine); Ordered 05/26/24 Ordered By: Gricelda Llanos Patient Education: OB Vaginal/Breast Feeding Additional Instructions: Discharge instructions were reviewed with the patient including signs and symptoms of infection and home going medications Nothing vaginally for 6 weeks: no tampons or intercourse Off Work or School for 6weeks Follow Up [facility] for a BP check?3-5 days * Call with BP greater than or equal to 160/110 * Severe headache that doesn't improve after taking medications * Changes in vision, including temporary loss of vision, blurred vision, and/or light sensitivity * Upper abdominal pain (usually under ribs on the right side) Optional 2-week visit: discuss feeding concerns, review control options and screen for anxiety/depression. 6-week visit for an annual exam. consultation services are available to all mothers and babies for the first year after delivery.? To make an appointment, please call [phone]. Activity Level: Activity as Tolerated Discharge Diet: Regular Follow Up Appointments: [facility] [Provider Group] Forms: [facility] Info Instructions Documented by User: Gricelda Llanos CNM 05/26/24 16:11 DS: Diagnosis Discharge Diagnosis (1) anemia: Status: Acute (2) Lactating mother: Status: Acute (3) care following vaginal delivery: Status: Acute (4) Preeclampsia: Status: Acute (5) GDM, class A2: Status: Acute OB - DS: Summary Hospital Course Hospital Course: The patient is a 28 year old G 4 P 4 at 37w 0d weeks gestation that was admitted to the Center on 05/23/24 for IOL due to CHTN with superimposed preeclampsia w/o severe features, GDMA2. She had an uncomplicated vaginal delivery. She delivered a viable female infant. The patient feels well.? The pain is well controlled with current medications.? the patient has done well.? Blood pressure and other vitals have been stable.? She has remained afebrile. She has no new complaints.? She is voiding without difficulty.? She is passing gas and has had a bowel movement.She is pumping with bottle feeding. She is ambulating and denies any dizziness.? the patient has done well. Has small amount of rubra lochia. 2 hour GTT results passed. Discharge home with baby.? Follow up in 2 weeks and 6 weeks.? , may see if needed? Hgb 9.8. Iron supplement ordered orally every other day? Pre-E diagnosed by elevated BP greater than 4 hours apart? Labs WNL Discharge home with BP cuff if does not already have one Follow up in 3-5 days? Call for signs/symptoms of preeclampsia? For pain control of perineum, breast and pelvic pain, take 600 mg Ibuprofen every 6 hours as needed by mouth or 1000 mg acetaminophen (Tylenol) every 6 hours by mouth as needed. You can alternate these so you are taking something every 3 hours as needed. A heating pad can also be used for your abdomen or breasts. You may also take docusate sodium up to twice daily to soften your stools and help to prevent constipation. You may wean off of it when your stools return to normal.? Time Spent with Patient Time spent: Less than 30 minutes Discharge Plan Discharge Disposition: Home, Self-Care Date of Admission: 05/23/24 18:08 Attending Provider on Discharge: Gricelda Llanos Primary Care Provider: Provider,Not a Local Condition: Stable Anticipated Discharge Date/Time: 05/26/24 12:00 Discharge Medications: New docusate sodium 100 mg Capsule 100 mg PO DAILY Qty: 90 0RF Rx Instructions: Take 1-2 tablets daily as needed for constipation. ferrous sulfate 325 mg (65 mg iron) Tablet 325 mg PO Q OTHER DAY Qty: 60 0RF ibuprofen 600 mg Tablet 600 mg PO Q6H PRNQty: 60 0RF Continued Gummies 400 mcg-35 mg- 25 mg-5 mg tablet,chewable 1 tab PO DAILY ascorbic acid (vitamin C) 1,000 mg capsule 1 g PO QDAY Discontinued aspirin 81 mg tablet,chewable 81 mg PO QDAY ferrous sulfate 325 mg (65 mg iron) tablet,delayed release (DR/EC) 325 mg PO Q OTHER DAY Qty: 30 0RF (DME) blood-glucose meter [Blood Glucose Monitoring] Kit See Rx Instructions .Route Qty: 1 0RF Rx Instructions: As directed to test blood glucose 4 times daily (DME) lancets [Accu-Chek Softclix Lancets] Misc See Rx Instructions .Route Qty: 100 2RF Rx Instructions: As directed to test blood glucose four times daily (DME) Blood Glucose Test Strip See Rx Instructions .Route Qty: 100 2RF Rx Instructions: As directed to test blood glucose values four times daily Humulin N NPH U-100 Insulin 100 unit/mL suspension 15 unit subcut .hs Qty: 30 2RF Rx Instructions: 15 units at bedtime (DME) insulin syringe-needle U-100 [Sure Comfort Insulin Syringe] 1 mL 30 gauge x 5/16 syringe See Rx Instructions .ROUTE .MEDSUPPLY Qty: 100 3RF Rx Instructions: As directed Discharge Orders: Discharge Order (Routine); Ordered 05/26/24 Ordered By: Gricelda Llanos Patient Education: OB Vaginal/Breast Feeding Additional Instructions: Discharge instructions were reviewed with the patient including signs and symptoms of infection and home going medications Nothing vaginally for 6 weeks: no tampons or intercourse Off Work or School for 6weeks Follow [facility] for a BP check?3-5 days * Call with BP greater than or equal to 160/110 * Severe headache that doesn't improve after taking medications * Changes in vision, including temporary loss of vision, blurred vision, and/or light sensitivity * Upper abdominal pain (usually under ribs on the right side) Optional 2-week visit: discuss feeding concerns, review control options and screen for anxiety/depression. 6-week visit for an annual exam. consultation services are available to all mothers and babies for the first year after delivery.? To make an appointment, please call [phone]. Activity Level: Activity as Tolerated Discharge Diet: Regular Follow Up Appointments: [facility]
[2024-05-26 08:29] LABS: Glucose Fasting 88 mg/dl (70-95)
[2024-05-26] MEDS: DOCUSATE SODIUM 100 MG CAPSULE PO (08:29)
[2024-05-26] MEDS: ACETAMINOPHEN 500 MG TABLET 1000 MG PO (08:29)
[2024-05-26 10:18] LABS: Glucose 2 Hour 114 mg/dl (70-155)
== END 2024-05-26 11:07 | disposition home or self-care (01) | DRG 807 ==
PROVIDERS: Advanced Practice Midwife; Obstetrics & Gynecology; Admitting Provider Obstetrics & Gynecology; Visit Provider Obstetrics & Gynecology
DX: O14.04 Mild to moderate pre-eclampsia, complicating childbirth (principal); Z37.0 Single live birth; O24.424 Gestational diabetes mellitus in childbirth, insulin controlled; O70.0 First degree perineal laceration during delivery; O99.02 Anemia complicating childbirth; D64.9 Anemia, unspecified; O99.214 Obesity complicating childbirth; E66.01 Morbid (severe) obesity due to excess calories; Z3A.36 36 weeks gestation of pregnancy
CPT/HCPCS: 01967; 36415; 59200; 82565; 82570; 82947; 82950; 82962; 84156; 84450; 84460; 84520; 85018; 85025; 85027; 86592; 86850; 86900; 86901; 88307; A9270; C1726; J1815; J2270; J2371; J2795; J7120

== ENCOUNTER 2024-05-29 10:31 | Outpatient (CLI) | payer MEDICAID, SELFPAY | END 2024-05-29 10:32 | disposition home or self-care (01) | PROVIDERS: Visit Provider Obstetrics & Gynecology | DX: O14.90 Unspecified pre-eclampsia, unspecified trimester (principal) | CPT/HCPCS: 82565; 84450; 84460; 84520 ==